=== PATIENT | female | born 1940 | race Caucasian/White ===

== ENCOUNTER 2021-03-19 10:26 | Emergency (ER) | payer MEDICARE ==
[~2021-03-19] VITALS: Ht 162.6 cm; Wt 66.0 kg
[~2021-03-19 10:26] MED LIST: CIPRO500 MG OR; NO HOME MEDS
[2021-03-19] MEDS ORDERED: PEPCID20 MG PO (11:05)
[2021-03-19] MEDS ORDERED: RAMIPRIL2.5 MG PO (11:06)
[2021-03-19 11:23] LABS: URINE BILIRUBIN - DIPSTICK NEGATIVE (NEGATIVE); URINE BLOOD DIPSTICK LARGE (NEGATIVE); URINE COLOR YELLOW; URINE GLUCOSE - DIPSTICK NEGATIVE (NEGATIVE); URINE KETONE NEGATIVE (NEGATIVE); URINE PH 7.5 (4.5-8.0); URINE PROTEIN - DIPSTICK TRACE mg/dL (NEG-TRACE); URINE UROBILINOGEN - DIPSTICK 0.2 E.U./dL (0.2)
[2021-03-19 11:26] LABS: URINE LEUK ESTERASE MODERATE (NEGATIVE); URINE NITRITE - DIPSTICK NEGATIVE (Negative)
[2021-03-19 11:41] LABS: URINE WBC 50-100 WBC/hpf (0-5)
[2021-03-19 11:42] LABS: URINE BACTERIA FEW hpf
[2021-03-19] MEDS ORDERED: PYRIDIUM200 MG PO (11:48)
[2021-03-19] MEDS ORDERED: KEFLEX500 MG PO (11:48)
[2021-03-19 12:18] VITALS: BP 154/91
== END 2021-03-19 12:18 | disposition home or self-care (01) ==
LOC: ED 10:26
PROVIDERS: Emergency Medicine
DX: N39.0 Urinary tract infection, site not specified (principal); B96.20 Unspecified Escherichia coli [E. coli] as the cause of diseases classified elsewhere; K21.9 Gastro-esophageal reflux disease without esophagitis; I10 Essential (primary) hypertension

== ENCOUNTER 2021-03-23 14:06 | Emergency (ER) | payer MEDICARE ==
[~2021-03-23] VITALS: Ht 162.6 cm; Wt 80.0 kg
[~2021-03-23 14:06] MED LIST changes: +KEFLEX500 MG PO; +PEPCID20 MG PO; +PYRIDIUM200 MG PO; +RAMIPRIL2.5 MG PO
[2021-03-23 16:24] VITALS: BP 169/70
== END 2021-03-23 16:30 | disposition home or self-care (01) ==
LOC: ED 14:06
PROC: 0HQ1XZZ Repair Face Skin, External Approach (ICD-10-PCS; principal; 2021-03-23)
DX: S01.81XA Laceration without foreign body of other part of head, initial encounter (principal); I10 Essential (primary) hypertension; K21.9 Gastro-esophageal reflux disease without esophagitis; V18.0XXA Pedal cycle driver injured in noncollision transport accident in nontraffic accident, initial encounter; Y93.55 Activity, bike riding